=== PATIENT | male | born 1985 | race Two or more races ===

== ENCOUNTER 2023-01-25 12:30 | Inpatient (IN) | payer OTHER ==
[~2023-01-25] VITALS: Ht 195.6 cm; Wt 90.0 kg
[2023-01-25] MEDS ORDERED: APIXABAN 5 MG TABLET PO ONE (15:00)
[2023-01-25 15:13] LABS: BASOPHILS % (AUTO) 0.5 % (0.0-2.0); EOSINOPHILS % (AUTO) 0.8 % (1.0-6.0); HEMOGLOBIN 13.6 g/dL (13.5-17.5); LYMPHOCYTES # (AUTO) 1.8 K/uL (1.0-4.8); LYMPHOCYTES % (AUTO) 23.9 % (22.0-44.0); MEAN CORPUSCULAR HEMOGLOBIN 29.2 pg (26.0-34.0); MEAN CORPUSCULAR VOLUME 88 fL (80-100); MONOCYTES # (AUTO) 0.6 K/uL (0.1-1.0); MONOCYTES % (AUTO) 7.5 % (2.0-9.0); NEUTROPHILS # (AUTO) 5.1 K/uL (1.8-7.7); NEUTROPHILS % (AUTO) 67.3 % (40.0-70.0); PLATELET COUNT (AUTO) 279 K/uL (150-450); RED BLOOD CELL COUNT(AUTO) 4.65 MIL/uL (4.50-5.90); RED CELL DISTRIBUTION WIDTH 12.3 % (11.5-14.5)
[2023-01-25 15:22] LABS: ANION GAP 10 mmol/L (8-16); CALCIUM, TOTAL 9.1 mg/dL (8.8-10.5); CARBON DIOXIDE 29 mmol/L (22-29); CHLORIDE 104 mmol/L (98-107); CREATININE 1.12 mg/dL (0.60-1.30); GLOMERULAR FILTR. RATE CALC > 60 mL/min (>60); GLUCOSE,RANDOM 104 mg/dL (70-110); POTASSIUM 4.1 mmol/L (3.5-5.1); SODIUM SERUM 143 mmol/L (136-145)
[2023-01-25 15:28] LABS: ALANINE AMINOTRANSFERASE 22 U/L (12-78); ALBUMIN 3.8 g/dL (3.4-5.0); ALKALINE PHOSPHATASE 75 U/L (46-116); ASPARTATE AMINOTRANSFERASE 13 U/L (15-37); BILIRUBIN,TOTAL 1.1 mg/dL (0.1-1.0); TOTAL PROTEIN, SERUM 7.7 g/dL (6.4-8.2)
[2023-01-25 17:37] VITALS: BP 112/66
[2023-01-25 19:50] VITALS: BP 108/56
[2023-01-25] MEDS ORDERED: ALBUTEROL SULFATE 2.5 MG/0.5 ML NEB SOLUTION NEB PRN (23:30)
[2023-01-25] MEDS ORDERED: ZOLPIDEM TARTRATE 5 MG TABLET PO PRN (23:30)
[2023-01-25] MEDS ORDERED: BISACODYL 10 MG RECTAL RECTAL SUPPOSITORY PR PRN (23:30)
[2023-01-25] MEDS ORDERED: ACETAMINOPHEN 325 MG TABLET PO PRN (23:30)
[2023-01-25] MEDS ORDERED: ONDANSETRON HCL 4 MG/2 ML VIAL IVP PRN (23:30)
[2023-01-25] MEDS ORDERED: MORPHINE SULFATE 2 MG/ML SYRINGE IVP PRN (23:30)
[2023-01-25] MEDS ORDERED: IPRATROPIUM BROMIDE 0.5 MG/2.5 ML NEB SOLUTION NEB PRN (23:30)
[2023-01-25] MEDS ORDERED: HYDROCODONE/ACETAMINOPHEN 5-325 MG TABLET PO PRN (23:30)
[2023-01-25] MEDS ORDERED: MAGNESIUM HYDROXIDE SUSPENSION 30 ML UDCUP PO PRN (23:30)
[2023-01-26 04:25] VITALS: BP 101/55
[2023-01-26] MEDS ORDERED: APIXABAN 5 MG TABLET PO ONE (06:00)
[2023-01-26 07:30] VITALS: BP 112/68
[2023-01-26] MEDS: DOCUSATE SODIUM 100 MG CAPSULE PO SCH ×2 (08:52→20:05)
[2023-01-26] MEDS: PANTOPRAZOLE SODIUM 40 MG/VIAL IVP SCH (08:52)
[2023-01-26] MEDS ORDERED: ELIQUIS PO (14:27)
[2023-01-26 15:35] VITALS: BP 104/56
[2023-01-26] MEDS: APIXABAN 5 MG TABLET PO SCH (20:05)
[2023-01-26 20:12] VITALS: BP 109/57
[2023-01-27 05:10] VITALS: BP 102/60
[2023-01-27 07:58] VITALS: BP 104/62
[2023-01-27] MEDS: APIXABAN 5 MG TABLET PO SCH (08:41)
[2023-01-27] MEDS: DOCUSATE SODIUM 100 MG CAPSULE PO SCH (08:41)
[2023-01-27] MEDS: PANTOPRAZOLE SODIUM 40 MG/VIAL IVP SCH (08:42)
== END 2023-01-27 10:50 | DRG 301 ==
LOC: EMS 12:34 → 6S 16:21
PROVIDERS: ADMIT Hospitalist; ATTEND Hospitalist
DX: I82.402 Acute embolism and thrombosis of unspecified deep veins of left lower extremity (principal)
CPT/HCPCS: 80053; 85025; 93971; 99285; C9113